=== PATIENT | female | born 2000 | race Two or more races ===

== ENCOUNTER 2022-11-09 12:19 | Emergency (ER) | payer OTHER ==
[~2022-11-09] VITALS: Ht 157.5 cm; Wt 106.1 kg
[2022-11-09] MEDS ORDERED: PRENATAL + DHA1 EAC1 (12:58)
== END 2022-11-09 18:38 | disposition home or self-care (01) ==
LOC: ER 12:19
DX: O20.9 Hemorrhage in early pregnancy, unspecified (principal); Z3A.20 20 weeks gestation of pregnancy

== ENCOUNTER 2022-11-12 09:11 | Outpatient (CLI) | payer OTHER ==
[~2022-11-12 09:11] MED LIST: PRENATAL + DHA1 EAC1
== END 2022-11-12 10:11 | disposition home or self-care (01) ==
LOC: PRENATAL 09:11
PROVIDERS: ATTEND Obstetrics & Gynecology Maternal & Fetal Medicine
DX: O35.9XX0 Maternal care for (suspected) fetal abnormality and damage, unspecified, not applicable or unspecified (principal); O35.3XX0 Maternal care for (suspected) damage to fetus from viral disease in mother, not applicable or unspecified; Z3A.20 20 weeks gestation of pregnancy

== ENCOUNTER 2023-02-07 13:25 | Outpatient (CLI) | payer OTHER | END 2023-02-07 14:45 | disposition home or self-care (01) | LOC: PRENATAL 13:25 | PROVIDERS: ATTEND Obstetrics & Gynecology Maternal & Fetal Medicine | DX: O26.849 Uterine size-date discrepancy, unspecified trimester (principal); O35.3XX0 Maternal care for (suspected) damage to fetus from viral disease in mother, not applicable or unspecified; O36.8199 Decreased fetal movements, unspecified trimester, other fetus; Z3A.32 32 weeks gestation of pregnancy ==

== ENCOUNTER 2023-03-02 14:32 | Emergency (ER) | payer OTHER ==
[~2023-03-02] VITALS: Ht 157.5 cm; Wt 106.1 kg
[2023-03-02] MEDS ORDERED: PEPCID AC20 MG PO (21:40)
[2023-03-02] MEDS ORDERED: ZOFRAN8 MG PO (21:40)
== END 2023-03-02 21:46 | disposition home or self-care (01) ==
LOC: EMR PED 14:32 → ER 14:34
DX: Z34.90 Encounter for supervision of normal pregnancy, unspecified, unspecified trimester (principal); R11.10 Vomiting, unspecified; R10.9 Unspecified abdominal pain

== ENCOUNTER 2023-03-08 18:35 | Inpatient (IN) | payer OTHER ==
[~2023-03-08] VITALS: Ht 157.5 cm; Wt 106.1 kg
[~2023-03-08 18:35] MED LIST changes: +PEPCID AC20 MG PO; +ZOFRAN8 MG PO
[2023-03-08] MEDS ORDERED: PRENATAL TABLE1 EAC5 PO (19:29)
[2023-03-11] MEDS ORDERED: SYNTHROID75 MCG PO (00:34)
[2023-03-11] MEDS ORDERED: TYLENOL EXTRA500 MG PO (00:35)
[2023-03-11] MEDS ORDERED: MUCINEX FAST-M180 M2 (00:35)
== END 2023-03-13 12:13 | disposition home or self-care (01) | DRG 807 ==
LOC: OBS/DEL 18:35 → LDR 03-09 09:21 → OB/GYN 03-11 18:40
PROVIDERS: ADMIT Obstetrics & Gynecology; ATTEND Obstetrics & Gynecology
PROC: BY4FZZZ Ultrasonography of Third Trimester, Single Fetus (ICD-10-PCS; 2023-03-09)
PROC: 4A1HXCZ Monitoring of Products of Conception, Cardiac Rate, External Approach (ICD-10-PCS; 2023-03-09)
PROC: 3E0P7VZ Introduction of Hormone into Female Reproductive, Via Natural or Artificial Opening (ICD-10-PCS; 2023-03-10)
PROC: 10E0XZZ Delivery of Products of Conception, External Approach (ICD-10-PCS; principal; 2023-03-11)
PROC: 0KQM0ZZ Repair Perineum Muscle, Open Approach (ICD-10-PCS; 2023-03-11)
PROC: 0UQMXZZ Repair Vulva, External Approach (ICD-10-PCS; 2023-03-11)
PROC: 3E033VJ Introduction of Other Hormone into Peripheral Vein, Percutaneous Approach (ICD-10-PCS; 2023-03-11)
DX: O70.1 Second degree perineal laceration during delivery (principal); O71.82 Other specified trauma to perineum and vulva; Z37.0 Single live birth; O26.843 Uterine size-date discrepancy, third trimester; O36.8130 Decreased fetal movements, third trimester, not applicable or unspecified; O13.4 Gestational [pregnancy-induced] hypertension without significant proteinuria, complicating childbirth; O14.04 Mild to moderate pre-eclampsia, complicating childbirth; Z3A.37 37 weeks gestation of pregnancy; Z20.822 Contact with and (suspected) exposure to COVID-19